=== PATIENT | male | born 1980 | race Caucasian/White ===

== ENCOUNTER 2022-12-22 14:13 | Outpatient (CLI) | payer OTHER, SELFPAY ==
--- NOTE | ~2022-12-22 | XR_ITS ---
[XR ribs LT 2V ] INDICATION: Left lower rib pain TECHNIQUE: Frontal projection of the upper left ribs, frontal projection of the lower left ribs, obli que projection of all the left ribs, frontal inspiratory chest x-ray for interpretation. FINDINGS: There is an acute left 10th rib fracture, although this could be bowel gas superimposed on the rib. No other fractures are identified. No pneumothorax. There are no soft tissue abnormality see n. The lungs are clear. IMPRESSION: 1: Acute nondisplaced left 10th rib fracture. Reviewed, dictated and finalized at location B.
== END 2022-12-22 14:14 | disposition home or self-care (01) ==
LOC: CHSIMG 14:18
DX: R07.81 Pleurodynia (principal); S22.32XA Fracture of one rib, left side, initial encounter for closed fracture
CPT/HCPCS: 71100

== ENCOUNTER 2022-12-27 14:58 | Outpatient (RCR) | payer OTHER, SELFPAY ==
--- NOTE | 2022-12-27 15:43 | PTOPEVAL1 ---
Assessment and note entered by Connie Villarreal, PT Evaluation Information Assessment Status Evaluation Diagnosis L rib pain Onset 12/15/22 Subjective Information David Marc reports he rolled to the right in bed on 12/15/22 and had sharp pain on his left side. He did not have an injury or fall prior to the onset of pain. He did not work and took it easy for 4 days due to pain. He tried to return to work on 12/19/22 but his employer would not let him come back until he was released by the doctor. He saw his PCP on 12/21/22 and was sent to PT for an evaluation. He then sneezed on 12/21/22 evening and had a return of pain so he asked the doctor to order a x-ray. He had the x-ray on 12/22/22. He will see his doctor again on 12/28/22. He is still off work. He has not been lifting much at home and notes no pain with lifting light household items. He does note a shifting feeling in his left rib when he leans to the side, gets up from chairs, and when he rolls in bed. He reports he is required to perform heavier lifting at work. Reported Pain Level Pain Score 0: Self Report Assessment PT Clinical Summary David Marc presents with left lateral rib pain that started on 12/15/22 when he rolled over in bed. He denies an injury or fall prior to the onset of pain. He was unable to work for 4 days due to pain. He has been only lifting light items and notes a shifting feeling with leaning to the side, sit to stand transfers, and bed mobility. He demonstrates decreased and painful right lumbar lateral flexion AROM and tenderness on the left lateral 7th-11th ribs with the most tenderness at the left 10th rib. He had a x-ray on 12/22/22 and PT pulled the radiology report that states a 10th left rib fracture is present so, lifting assessment was not performed today. The patient is scheduled to see his doctor on 12/28/22. He is not a candidate for PT at this time and will be on hold with PT until cleared by his physician. Plan of Care PT Services Indicated No These treatments will address the objective and functional deficits as defined above. The patient will be advanced safely and appropriately in order for the patient to progress towards his/her prior level of function. Additional exercises will be introduced and as well as a comprehensive home exercise program upon discharge, if needed, ?to ensure carryover of functional gains achieved in the clinic. This treatment plan has been reviewed and agreement upon by the patient.
== END 2022-12-27 16:07 | disposition home or self-care (01) ==
LOC: CHSPT 14:58
PROVIDERS: Visit Provider Family Medicine
DX: R07.81 Pleurodynia (principal)
CPT/HCPCS: 97161

== ENCOUNTER 2023-01-05 11:34 | Outpatient (CLI) | payer OTHER, SELFPAY ==
--- NOTE | ~2023-01-05 | XR_ITS ---
AP and oblique views of the left ribs Clinical History: Pain COMPARISON: 12/22/2022 Findings: Fracture of the left 10th rib is again noted, similar appearance to prior exam. Lungs are c lear, without focal consolidation or pleural effusion. Cardiomediastinal contour is within normal lucero its. Soft tissues are unremarkable. Impression: Left 10th rib fracture, essentially unchanged. Reviewed, dictated and finalized at location . Impression: Left 10th rib fracture, essentially unchanged.
== END 2023-01-05 11:35 | disposition home or self-care (01) ==
LOC: CHSLAB 11:46 → CHSIMG 11:47
PROVIDERS: PCP Family Medicine
DX: S22.32XA Fracture of one rib, left side, initial encounter for closed fracture (principal)
CPT/HCPCS: 71100